=== PATIENT | male | born 1975 | race American Indian/Alaskan Native ===

== ENCOUNTER 2016-09-23 13:05 | Emergency (ER) | payer MEDICARE, MEDICAID ==
[2016-09-23 13:24] VITALS: BMI 36.1
[2016-09-23 13:29] VITALS: RESP 18; TEMP 98.2; O2SAT 99
[2016-09-23] MEDS ORDERED: Sodium Chloride 0.9% 1,000 ML IV SCH (14:15)
--- NOTE | 2016-09-23 14:20 | ED PDOC ---
Arrival/HPI - General Chief Complaint: Abdominal Pain Time Seen by Provider: 09/23/16 13:53 Historian: Patient - History of Present Illness Narrative History of Present Illness (Text): The pt is a 41yo male with Hx of gastritis, presents to the Emergency department for evaluation of abdominal discomfort with associated loose stools for the past three days. Pt reports the pain is diffuse and states he has not had similar symptoms in the past. Pt reports over the three days, his symptoms have been getting better and denies any blood in his stool. He denies any nausea , vomiting, fever or chills. Pt currently offers no additional medical complaints. Time/Duration: < week (3 days) Past Medical History - Provider Review Nursing Documentation Reviewed: Yes - Infectious Disease Hx of Infectious Diseases: None - Tetanus Immunization Tetanus Immunization: Unknown - Cardiac Hx Cardiac Disorders: No - Pulmonary Hx Respiratory Disorders: No - Neurological Hx Neurological Disorder: No - HEENT Hx HEENT Disorder: No - Renal Hx Renal Disorder: No - Endocrine/Metabolic Hx Endocrine Disorders: No - Hematological/Oncological Hx Hepatitis B: Yes Other/Comment: not sure if its Hep A or B - Integumentary Hx Dermatological Disorder: No - Musculoskeletal/Rheumatological Other/Comment: L ankle surgery - Gastrointestinal Hx Gastroesophageal Reflux: Yes - Genitourinary/Gynecological Hx Genitourinary Disorders: No - Psychiatric Hx Depression: No Hx Emotional Abuse: No Hx Physical Abuse: No Hx Substance Use: Yes - Past Surgical History Past Surgical History: No Previous - Surgical History Hx Orthopedic Surgery: Yes Other/Comment: L ankle surgery - Anesthesia Hx Anesthesia: Yes Hx Anesthesia Reactions: No Hx Malignant Hyperthermia: No - Suicidal Assessment Feels Threatened In Home Enviroment: No Family/Social History - Physician Review Nursing Documentation Reviewed: Yes Family/Social History: Unknown Family HX Smoking Status: Former Smoker Hx Alcohol Use: Yes Frequency of alcohol use: Socially Hx Substance Use: Yes Substance used: Marijuana Hx Substance Use Treatment: No Allergies/Home Meds Allergies/Adverse Reactions: Allergies No Known Allergies Allergy (Verified 06/25/12 10:21) Home Medications: Home Meds Medication Instructions Recorded Confirmed oxyCODONE [oxyCODONE Immediate 1 tab PO QID PRN 09/23/16 09/23/16 Release Tab] Review of Systems - Review of Systems Constitutional: Normal. absent: Fevers Eyes: absent: Vision Changes ENT: absent: Rhinorrhea Respiratory: absent: SOB Cardiovascular: absent: Chest Pain Gastrointestinal: Abdominal Pain, Diarrhea, Appetite Changes. absent: Nausea, Vomiting, Hematochezia, Hematemesis, Anorexia, Food Intolerance Genitourinary Male: absent: Dysuria, Frequency Musculoskeletal: absent: Back Pain Skin: absent: Rash Neurological: absent: Headache, Dizziness, Focal Weakness Hemo/Lymphatic: absent: Easy Bleeding Physical Exam - Physical Exam Narrative Physical Exam (Text): Head: Atraumatic. Normocephalic. Eyes: PERRL. EOMI. Conjunctivae are not pale. ENT: Mucous membranes are moist and intact. Oropharynx is clear and symmetric. Neck: Supple. Full ROM. No JVD. No lymphadenopathy. Cardiovascular: Regular rate. Regular rhythm. No murmurs, rubs, or gallops. Distal pulses are 2+ and symmetric. Pulmonary/Chest: No evidence of respiratory distress. Clear to auscultation bilaterally. No wheezing, rales or rhonchi. Abdominal: Soft and non-distended. Very mild periumbilical pain. NO incarcerated hernia or mass palpated. No rebound, guarding, or rigidity. No organomegaly. Good bowel sounds. Back: No CVA tenderness. Recta: no gross bleeding reported Extremities: No edema. No cyanosis. No clubbing. Full range of motion in all extremities. No calf tenderness. No joint pain. Skin: Skin is warm and dry. No petechiae. No purpura. Neurological: Alert, awake, and oriented to person, place, time, and situation. Normal speech. Motor and sensory intact. Psychiatric: Good eye contact. Normal interaction, affect, and behavior. Vital Signs Reviewed: Yes Vital Signs Temp Pulse Resp BP Pulse Ox 09/23/16 15:34 74 18 145/86 99 09/23/16 14:21 79 18 146/91 H 99 09/23/16 13:29 98.2 F 89 18 148/109 H 99 Temperature: Afebrile Blood Pressure: Normal Pulse: Regular Respiratory Rate: Normal Appearance: Positive for: Well-Appearing, Non-Toxic, Comfortable Pain Distress: None Mental Status: Positive for: Alert and Oriented X 3 Medical Decision Making ED Course and Treatment: Impression: 41yo male presents with improving abdominal pain and loose stool for the past 3 days Differential Diagnosis included but are not limited to: Gastroenteritis Plan: -- Labs -- Pepcid 20 mg IV -- IVF -- Reassess and disposition Prior Visits: Notes and results from previous visits were reviewed. Progress Notes: Patient with very minimal pain on evaluation. He reports symptoms improving over past 2-3 days. In ED, afebrile, nontoxic appearing, tolerating PO. Denies family hx of IBD, denies prior frequent episodes. No bleeding or melena noted. 09/23/16 16:11 Upon reevaluation, pt with no abdominal pain. Denies any nausea or vomiting. Electrolytes unremarkable. Pt has a follow up scheduled with PCP later today. Will be discharged home with Pepcid and informed to return to the Emergency department immediately if he develops fever or abdominal pain. 09/23/16 21:19 - Lab Interpretations Lab Results: 09/23/16 14:30 09/23/16 15:03 Lab Results 09/23/16 15:03: Sodium 140, Potassium 3.8, Chloride 102, Carbon Dioxide 26, Anion Gap 16, BUN 11, Creatinine 1.3, Est GFR ( Amer) > 60, Est GFR (Non- Af Amer) > 60, Random Glucose 93, Calcium 9.5, Total Bilirubin 0.4, AST 33, ALT 42, Alkaline Phosphatase 69, Total Protein 8.4 H, Albumin 4.7, Globulin 3.8, Albumin/Globulin Ratio 1.2 09/23/16 14:30: WBC 5.3, RBC 5.80, Hgb 17.5, Hct 48.2, MCV 83.1, MCH 30.2, MCHC 36.3, RDW 13.6, Plt Count 229, MPV 10.2, Gran % 48.4 L, Lymph % (Auto) 34.0, [place] % (Auto) 15.7 H, Eos % (Auto) 1.7, Baso % (Auto) 0.2, Gran # 2.55, Lymph # 1.8, [place] # 0.8 H, Eos # 0.1, Baso # 0.01 - Medication Orders Current Medication Orders: Discontinued Medications Famotidine (Pepcid) 20 mg IVP STAT STA Stop: 09/23/16 14:09 Last Admin: 09/23/16 14:20 Dose: 20 mg Sodium Chloride (Sodium Chloride 0.9%) 1,000 mls @ 100 mls/hr IV .Q10H [facility] Last Admin: 09/23/16 14:20 Dose: 100 mls/hr - Scribe Statement The provider has reviewed the documentation as recorded by the Sowmya Gonzales Provider Sowmya Attestation: All medical record entries made by the Scribe were at my direction and personally dictated by me. I have reviewed the chart and agree that the record accurately reflects my personal performance of the history, physical exam, medical decision making, and the department course for this patient. I have also personally directed, reviewed, and agree with the discharge instructions and disposition. Disposition/Present on Arrival - Present on Arrival Any Indicators Present on Arrival: No History of DVT/PE: No History of Uncontrolled Diabetes: No Urinary Catheter: No History of Decub. Ulcer: No History Surgical Site Infection Following: None - Disposition Have Diagnosis and Disposition been Completed?: Yes Diagnosis: Gastroenteritis Disposition: HOME/ ROUTINE Disposition Time: 16:00 Patient Plan: Discharge Condition: GOOD Discharge Instructions (ExitCare): Gastroenteritis (ED) Additional Instructions: For any return of any abdominal pain, any fevers, any nausea or vomiting, any persistent diarrhea, any bloody stool, any headaches, chest pain or shortness of breath, any persistent or worsening of symptoms, get rechecked. Follow-up with your physician in 1-2 days. Prescriptions: Famotidine [Pepcid] 20 mg PO DAILY #5 tab Referrals: [facility] [Outside] - Follow up with primary PCP,NO [Primary Care Provider] - Follow up with primary Forms: [employer] (Q[place])
[2016-09-23 14:42] LABS: ADD MANUAL DIFF? NO
[2016-09-23 14:46] LABS: BASO # 0.01 K/mm3 (0.0-2.0); BASO % 0.2 % (0.0-3.0); EOS # 0.1 (0.0-0.7); EOS % 1.7 % (1.5-5.0); GRAN # 2.55 (1.4-6.5); GRAN % 48.4 % (50.0-68.0); HEMATOCRIT 48.2 % (42.0-52.0); LYMPH # 1.8 (1.2-3.4); MEAN CELL VOLUME 83.1 fL (80.0-105.0); MEAN CORPUSCULAR HEMOGLOBIN 30.2 pg (25.0-35.0); MEAN CORPUSCULAR HGB CONC 36.3 g/dl (31.0-37.0); MEAN PLATELET VOLUME 10.2 fl (7.0-11.0); MONO # 0.8 (0.1-0.6); MONO % 15.7 % (1.0-6.0); PLATELET COUNT 229 10^3/uL (120.0-450.0); RED CELL DISTRIBUTION WIDTH 13.6 % (11.5-14.5); WHITE BLOOD COUNT 5.3 10^3/ul (4.5-11.0)
[2016-09-23 15:25] LABS: ALB/GLOB RATIO 1.2 (1.1-1.8); ALKALINE PHOSPHATASE 69 U/L (38-133); ALT/SGPT 42 U/L (7-56); AST/SGOT 33 U/L (15-59); BILIRUBIN,TOTAL 0.4 mg/dL (0.2-1.3); BLOOD UREA NITROGEN 11 mg/dL (7-21); CALCIUM 9.5 mg/dL (8.4-10.5); CARBON DIOXIDE 26 mmol/L (21-33); CHLORIDE 102 mmol/L (98-107); GFR AFRICAN-AMERICAN > 60; GLUCOSE,RANDOM 93 mg/dL (70-110); POTASSIUM 3.8 mmol/L (3.6-5.0); SODIUM 140 mmol/L (132-148); TOTAL PROTEIN 8.4 g/dL (5.8-8.3)
[2016-09-23 15:35] VITALS: BP 145/86; PULSE 74
== END 2016-09-23 15:45 | disposition home or self-care (01) ==
LOC: ED 13:05
DX: K52.29 Other allergic and dietetic gastroenteritis and colitis (principal)
CPT/HCPCS: 80053; 85025; 96374; 99283; J7040